=== PATIENT | female | born 1960 | race African-American/Black ===

== ENCOUNTER 2023-05-16 19:03 | Emergency (ER) | payer MEDICAID, SELFPAY ==
[2023-05-16] VITALS (7 sets, daily range): BP systolic 166–214; BP diastolic 89–106; PULSE 75–95; RESP 16–21; TEMP 36.8–37.2; O2SAT 95–98; BMI 26.9
--- NOTE | ~2023-05-16 | CT_ITS ---
EXAMINATION: CT brain, CT cervical spine. Left hip and left knee x-ray. CLINICAL INDICATIONS: Fall, pain. COMPARISON: None. TECHNIQUE: Left knee 4 views. AP pelvis and left hip 3 views. 5 mm thin axial and reformatted 2 mm thin sagittal coronal images of brain were obtained. Subsequently axial 3 mm thin and reformatted 2 mm thin sagittal and coronal images of cervical spine were obtained. DLP 932. This CT examination was performed using dose optimization technique as appropriate, variously including the following: Automated exposure control Adjustment of MA and/or KV according to patient size(this includes techniques or standardized protocols for targeted exams where dose is matched to indication/reason for exam; extremities or head. Use of iterative reconstruction techniques. FINDINGS: LEFT KNEE: There is mild loss of medial and patellofemoral compartment joint space with moderate periarticular spurring. No abnormal joint effusion, loose bodies or bony erosive changes seen. AP PELVIS AND LEFT HIP: There is normal symmetry of bilateral hip joints and SI joints. There is no visible fracture or dislocation involving the pelvic bones or the left hip. There is nonspecific calcification along the greater tuberosity and along the lateral margin of left iliac bone likely old injury. BRAIN: There is no acute intra-axial, extra-axial bleed, masses or midline shift. There is no acute infarction in evolution. There is no edema. The becerra to white matter differentiation is maintained normal. The lateral ventricles are symmetrical in size and configuration without enlargement. Bone windows reveal no calvarial abnormality. Bilateral paranasal sinuses and mastoid air cells are well-aerated. There is no scalp soft tissue abnormality. CERVICAL SPINE: There is mild straightening of cervical lordosis the vertebral heights, alignment and disc heights are normal. The craniovertebral junction and the C1-C2 alignment is normal. There is mild ventral and posterior spondylosis C4-C5, C5-C6 and C6-C7 disc levels. Visualized mastoid sinuses are clear. The prevertebral and paravertebral soft tissues are normal. The airways widely patent. The thyroid lobes are enlarged, symmetrical with punctate right lobe calcification. The airway is patent. The lung apices are clear. CT/CT cervical spine wo IV con IMPRESSION: Mild degenerative changes medial and patellofemoral compartment without any visible acute fracture, dislocation or joint effusion. Unremarkable AP pelvis and left hip. There is no acute intracranial process seen. Mild straightening of cervical lordosis likely spasm or positional. Degenerative disc changes with ventral and posterior spondylosis as described above. There is no visible acute fracture or dislocation seen.
--- NOTE | 2023-05-16 19:30 | ECG_ITS ---
Test Reason : FALL Blood Pressure : / mmHG Vent. Rate : 086 BPM Atrial Rate : 086 BPM P-R Int : 174 ms QRS Dur : 072 ms QT Int : 374 ms P-R-T Axes : 051 -50 010 degrees QTc Int : 447 ms Normal sinus rhythm Left axis deviation Inferior infarct , age undetermined Abnormal ECG No previous ECGs available Referred By: Generic ED Physician Electronically Signed By:RIGOBERTO BOOTH MD
--- NOTE | 2023-05-16 19:51 | ED_ITS ---
HPI - Fall General Chief Complaint: Fall Stated Complaint: FALL W/HEADSTRIKE,LOC,L HIP DEFORMITY,-THINNERS Time Seen by Provider: 05/16/23 19:25 Source: patient Mode of arrival: EMS Limitations: no limitations and language barrier (Swahili) History of Present Illness HPI Narrative: Patient is a 63-year-old female, Swahili speaking, recently moved here from [place] 2 months ago presenting to the emergency department today via EMS for evaluation after a fall at home. Reportedly patient was feeling dizzy which has not been atypical for her over the past 2 months she has been without her hypertension and diabetes medications. Of note, she did see a doctor yesterday and was restarted on her medications. Today she was attempting to walk to the restroom when she began feeling dizzy and she fell landing on her left knee and then struck her head against a chair. According to friend who witnessed the fall she was unresponsive for 2 minutes afterwards, upon EMS arrival she was then responsive reporting pain in her left knee and hip, as well as low back pain. Denies headache, neck pain, neck stiffness, numbness or tingling of her extremities, chest pain, shortness of breath, difficulty breathing, nausea vomiting, abdominal pain. Related Data Allergies Allergy/AdvReac Type Severity Reaction Status Date / Time No Known Allergies Allergy Verified 05/16/23 19:33 Review of Systems 2 Review of Systems: Yes all other systems are reviewed and are negative [facility] Past Medical History Attestation statement: The following information was validated with the patient. Source: old records reviewed Social History Social History Smoked in Last 30 Days: No Use of substances other than those prescribed or required for medical reasons: No Advance Directives: No Advance Directives Information Provided: No Patient : No Physical Exam 2 Vital Signs: Vital Signs: Last Vital Signs Temp 98.3 F 05/16/23 23:21 Pulse 83 05/16/23 23:21 Resp 18 05/16/23 23:21 BP 178/93 H 05/16/23 23:21 Pulse Ox 98 05/16/23 23:21 O2 Del Method Room Air 05/16/23 23:21 BMI result Body Mass Index 26.9 Appearance: Alert.?Oriented to person, place and time. No acute distress.?Normal affect. Head: Normocephalic, atraumatic Eyes: Pupils equal, round and reactive to light. EOMI. Conjunctiva and sclera normal? No Alonso sign noted. No raccoon eyes noted ENT: No septal hematoma, nares patent bilaterally. External auditory canal normal tympanic membrane pearly becerra and intact bilaterally. Dentition normal, no fractured teeth. No lesions or lacerations of oropharynx. Uvula midline. Moist mucous membranes. Neck: Normal inspection.? Neck supple.??No palpable tenderness, step-off, deformities. CVS: Heart sounds normal. Normal heart rate and rhythm.? Pulses normal.?? Respiratory: No respiratory distress.? Lung sounds clear to auscultation bilaterally?? Abdomen: Soft and non-tender. Normoactive bowel sounds. ?? Skin: Skin warm and dry.? Normal skin color.? Normal skin turgor.?? Extremities: No lower extremity edema.? Mild decreased AROM to left knee and hip, no shortening, no rotation, no laxity upon exam. 2+ DP/PT pulse bilaterally. Neuro: Moves all extremities spontaneously. Sensation intact bilaterally. CN II- XII intact. No focal neuro deficits. Course Reevaluation(s) Reevaluation #1: CT of the head without acute intracranial pathology, cervical spine without evidence of fracture/subluxation, degenerative disc changes are noted in the cervical spine. XR of the left hip is unremarkable, mild degenerative changes in the left knee otherwise no acute fracture dislocation. Patient received labetalol IV for hypertension with good effect, 177/93. Glucose 187, no symptoms concerning for DKA/HHS despite not having been medicated for the past 2 months for her diabetes. CMP overall unremarkable. High sensitive troponin within normal range, EKG without acute ischemic findings, do not suspect ACS as etiology for dizziness. CMP unremarkable no leukocytosis or anemia. Ambulatory with steady gait. Requesting to be discharged home, at this time I feel that she is stable for discharge, discussed strict return precautions and outpatient follow-up with her primary care provider. Medications Administered Discontinued Medications Generic Name Dose Route Start Last Admin Trade Name Freq PRN Reason Stop Dose Admin Acetaminophen 975 mg 05/16/23 19:57 05/16/23 20:16 Acetaminophen 325 Mg Tablet PO 05/16/23 19:58 975 mg ONCE ONE Administration Labetalol HCl 10 mg 05/16/23 19:57 05/16/23 20:16 Labetalol Hcl 100 Mg/20 Ml Vial IVPUSH 05/16/23 19:58 10 mg ONCE ONE Administration Oxycodone HCl 5 mg 05/16/23 19:57 05/16/23 20:16 Oxycodone Hcl Immed Release 5 Mg Tablet PO 05/16/23 19:58 5 mg ONCE ONE Administration Medical Decision Making Medical Decision Making [facility] Narrative: Patient is a 63-year-old female who presents emergency department for evaluation after a fall precipitating dizziness, resulting in head strike with reported loss of consciousness, and pain to the left hip/knee. 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 Will obtain CBC to evaluate for leukocytosis/ anemia, CMP and lipase to evaluate for abnormal electrolytes /abnormal renal function/ abnormal hepatic/biliary function, EKG and troponin to evaluate for ischemia/ACS. XR of the hip and knee to exclude fracture/dislocation. CT head and cervical spine to exclude ICH/SDH/fracture/subluxation. Orthostatic vital signs to be obtained. Noted to be hypertensive, 214/106, will try labetalol IV in addition to oxycodone for pain. Differential Diagnosis Differential Diagnoses: The differential diagnosis associated with the presentation includes (See narrative above) Admission/Observation Consideration of admission/observation: Escalation of care including admission/observation considered (See narrative above and course narrative for further detail) Lab Data [facility] Lab Attestation statement: I reviewed the patient's lab results. (See course narrative) 05/16/23 20:02 05/16/23 20:02 Labs: Lab Results 05/16/23 05/16/23 05/16/23 Range/Units 20:02 20:17 21:58 WBC 9.0 (4.8-10.8) X10*3/uL RBC 4.32 (4.20-5.50) X10*6/uL Hgb 12.5 (12.0-16.0) g/dl Hct 37.1 (37.0-47.0) % MCV 85.9 (80.0-98.0) fL MCH 28.9 (27.0-33.0) pg MCHC 33.7 (31.0-35.0) g/dl RDW 13.6 (11.0-16.0) % Plt Count 305 (160-400) X10*3/uL MPV 9.6 (9.4-12.3) fL Immature Gran % (Auto) 0.2 (0.0-0.4) % Neut % (Auto) 48.6 (45-73) % Lymph % (Auto) 42.0 H (20-40) % [place] % (Auto) 6.2 (2-11) % Eos % (Auto) 2.4 (0-4) % Baso % (Auto) 0.6 (0-2) % Lymph # (Auto) 3.8 (1.2-4.9) X10*3/uL [place] # (Auto) 0.6 (0.1-1.2) X10*3/uL Eos # (Auto) 0.2 (0.0-0.4) X10*3/uL Baso # (Auto) 0.1 (0.0-0.2) X10*3/uL Abs Immat Gran (auto) 0.02 (0.00-0.03) X10*3/uL Absolute Neuts (auto) 4.4 (2.0-8.3) x10*3/uL Absolute Nucleated RBC 0.000 (0.0-0.012) X10*3/uL Nucleated RBC % (auto) 0.0 (0.0-0.2) /100WBC Sodium 140 (135-145) mmol/L Potassium 4.4 (3.3-5.1) mmol/L Chloride 103 (96-108) mmol/L Carbon Dioxide 28 (22-29) mmol/L Anion Gap 13 (12-20) BUN 21 H (9-16) mg/dL Creatinine 1.17 (0.5-1.4) mg/dL Estim Creat Clear Calc 48.8 Estimated GFR 47 POC Glucose 187 H (60-115) mg/dL Random Glucose 192 H (60-115) mg/dL Calcium 10.0 (8.4-10.2) mg/dL Total Bilirubin 0.2 (0.0-1.0) mg/dL AST 13 (5-31) U/L ALT 11 (0-31) U/L Alkaline Phosphatase 56 (39-117) U/L Troponin I High Sens 13.1 (<3.5-17.0) ng/L Total Protein 7.8 (6.5-8.0) g/dL Albumin 4.1 (3.5-5.0) g/dL Urine Color Yellow Urine Appearance Clear Urine pH 8.0 (5.0-9.0) Ur Specific [place] 1.010 (1.005-1.025) Urine Protein 100 (2+) H (Neg-Trace) mg/dL Urine Glucose (UA) 250 H (Negative) mg/dL Urine Ketones Negative (Negative) mg/dL Urine Blood Negative (Negative) Urine Nitrite Negative (Negative) Ur Leukocyte Esterase Negative (Negative) Urine RBC 0-2 (0-2) /HPF Urine WBC 0-5 (0-5) /HPF Ur Squamous Epith Cells 0-2 (0-2) /HPF Urine Bacteria None Seen (None Seen) Hyaline Casts 0-2 (0-2) /LPF Independent Interpretation I performed an independent interpretation of an: EKG, Plain X-Ray (I personally interpreted XR imaging and agree with radiologist impression) and CT Scan Interpretation: Rate:86 Rhythm:? Normal sinus rhythm Minto:? Normal Normal P waves.? Normal CODEY.?? Normal QRS complex.?? ST T wave :??No ST elevation, no ST depression qTC:447 The study has been interpreted contemporaneously by me. Radiology Impression Discussion of test interpretation with radiology: I have reviewed the radiologist's reading. Radiologist Impression: CT/CT head/brain wo IV con IMPRESSION: There is no acute intracranial process seen. Mild straightening of cervical lordosis likely spasm or positional. Degenerative disc changes with ventral and posterior spondylosis as described above. There is no visible acute fracture or dislocation seen. XR/XR knee LT 4V IMPRESSION: Mild degenerative changes medial and patellofemoral compartment without any visible acute fracture, dislocation or joint effusion. Unremarkable AP pelvis and left hip. Discharge Plan Discharge Clinical Impression: Head injury, Fall, Hypertension Patient Disposition: Home, Self-Care Instructions: Head Injury (ED), Hypertension (ED), Fall Prevention (ED) Additional Instructions: Continue taking all medications as prescribed. Change positions slowly. You can take Tylenol 500 mg, 2 tablets (1,000mg) every 4-6 hours as needed for pain, but not to exceed 3 doses daily (3,000mg).? Follow-up with primary care provider. Return back to emergency department any new or worsening symptoms or concerns. Referrals: Jack Stroud MD [Primary Care Provider] - Interventions: ED Discharge Assessment Last Done: 05/16/23 23:22 Discharge Date/Time: 05/16/23 23:24
[2023-05-16 20:05] LABS: MANUAL DIFF FLAG NO
[2023-05-16 20:07] LABS: Basophils Absolute Auto 0.1 X10*3/uL (0.0-0.2); Basophils Percent Auto 0.6 % (0-2); Eosinophils Absolute Auto 0.2 X10*3/uL (0.0-0.4); Eosinophils Percent Auto 2.4 % (0-4); Hematocrit 37.1 % (37.0-47.0); Hemoglobin 12.5 g/dl (12.0-16.0); Imm Gran Abs Auto 0.02 X10*3/uL (0.00-0.03); Imm Gran Pct Auto 0.2 % (0.0-0.4); Lymphocytes Absolute Auto 3.8 X10*3/uL (1.2-4.9); Mean Corpuscular HGB Conc 33.7 g/dl (31.0-35.0); Mean Corpuscular Hemoglobin 28.9 pg (27.0-33.0); Mean Corpuscular Volume 85.9 fL (80.0-98.0); Mean Platelet Volume 9.6 fL (9.4-12.3); Monocytes Absolute Auto 0.6 X10*3/uL (0.1-1.2); Monocytes Percent Auto 6.2 % (2-11); Neutrophils Absolute Auto 4.4 x10*3/uL (2.0-8.3); Neutrophils Percent Auto 48.6 % (45-73); Platelet Count 305 X10*3/uL (160-400); Red Blood Count 4.32 X10*6/uL (4.20-5.50); Red Cell Distribution Width 13.6 % (11.0-16.0)
[2023-05-16] MEDS: Acetaminophen 325 MG TABLET 975 MG PO (20:16)
[2023-05-16] MEDS: Labetalol HCL 100 MG/20 ML VIAL 10 MG IVPUSH (20:16)
[2023-05-16] MEDS: oxyCODONE HCl Immed Release 5 MG TABLET PO (20:16)
[2023-05-16 20:22] LABS: Alanine Aminotransferase 11 U/L (0-31); Albumin Level 4.1 g/dL (3.5-5.0); Alkaline Phosphatase 56 U/L (39-117); Anion Gap 13 (12-20); Aspartate Amino Transferase 13 U/L (5-31); Bilirubin Total 0.2 mg/dL (0.0-1.0); Blood Urea Nitrogen 21 mg/dL (9-16); Carbon Dioxide 28 mmol/L (22-29); Chloride 103 mmol/L (96-108); Creatinine Clr Calc Pharmacy 48.8; Estimated Glomerular Filt Rate 47; Glucose Random 192 mg/dL (60-115); Potassium 4.4 mmol/L (3.3-5.1); Sodium 140 mmol/L (135-145); Total Protein 7.8 g/dL (6.5-8.0)
[2023-05-16 20:22] LABS: Glucose, Whole Blood 187 mg/dL (60-115)
[2023-05-16 20:29] LABS: Troponin-I High Sensitivity 13.1 ng/L (<3.5-17.0)
--- NOTE | 2023-05-16 21:54 | PC.NURSE ---
Patient is alert and oriented x4. Patient reports pain in her left hip, left knee, and back 2/10, at tolerable level. BP 177/81 down from 211/109, P 99. Susan, ED provider aware of BP, plan to continue to monotro, report to ED provider systolic BP reading >200. CT scan negative for acute injury, ED provider removed c-collar. Ortho vitals obtained by [facility] tech. Patient's and friend at bedside, call [place]ton within patinet's reach.
[2023-05-16 22:05] LABS: Appearance Urine Clear; Color Urine Yellow; Glucose Urine UA 250 mg/dL (Negative); Leukocyte Esterase Urine Negative (Negative); Nitrite Urine Negative (Negative); UMIC TRIGGER UACC YES; Urine Blood Negative (Negative); Urine Ketones Negative (Negative); Urine Protein 100 (2+) mg/dL (Neg-Trace)
[2023-05-16 22:07] LABS: Bacteria Urine None Seen (None Seen); Hyaline Casts Urine 0-2 /LPF (0-2); RBC Urine 0-2 /HPF (0-2); Squamous Epithelial Cell Urine 0-2 /HPF (0-2); WBC Urine 0-5 /HPF (0-5)
--- NOTE | 2023-05-16 22:58 | MHC.EDTECH ---
Patient walk with a steady gate
== END 2023-05-16 23:24 | disposition home or self-care (01) ==
PROVIDERS: Nurse Practitioner Family; Emergency Provider Student in an Organized Health Care Education/Training Program; PCP Internal Medicine
DX: S09.90XA Unspecified injury of head, initial encounter (principal); W18.39XA Other fall on same level, initial encounter; I10 Essential (primary) hypertension; R42 Dizziness and giddiness; Y93.89 Activity, other specified; Y92.099 Unspecified place in other non-institutional residence as the place of occurrence of the external cause; Y99.9 Unspecified external cause status
CPT/HCPCS: 36415; 70450; 72125; 73502; 73564; 80053; 81001; 82947; 84484; 85025; 93005; 96374; 99284; 99285; J1920

== ENCOUNTER → 2023-05-16 19:30 | Outpatient (BNV) | payer MEDICAID, SELFPAY | PROVIDERS: Emergency Provider Student in an Organized Health Care Education/Training Program; PCP Internal Medicine; Visit Provider Internal Medicine Cardiovascular Disease | DX: R94.31 Abnormal electrocardiogram [ECG] [EKG] (principal) | CPT/HCPCS: 93010 ==